=== PATIENT | male | born 1990 | race African-American/Black ===

== ENCOUNTER 2021-08-08 11:32 | Emergency (ER) | payer OTHER ==
[~2021-08-08] VITALS: Ht 177.8 cm; Wt 87.1 kg
[2021-08-08] MEDS ORDERED: LOPE2CAP40 PO (12:18)
--- NOTE | 2021-08-08 12:20 | NUR ---
TO ER BED 11. WEAKNESS, DIARRHEA X 3-4 DAYS.
[2021-08-08 12:24] VITALS: BP 107/75
--- NOTE | 2021-08-08 12:25 | NUR ---
Patient discharged to home in stable condition. Written and verbal after care instructions given. Patient verbalizes understanding of instruction.
== END 2021-08-08 12:24 | disposition home or self-care (01) ==
LOC: ER 11:37
DX: R19.7 Diarrhea, unspecified (principal)